=== PATIENT | female | born 1995 | race Caucasian/White ===

== ENCOUNTER 2019-04-14 21:49 | Emergency (ER) | payer OTHER ==
[2019-04-14 22:07] VITALS: BP 127/73
--- NOTE | 2019-04-14 22:10 | NUR ---
PATIENT LEFT WITHOUT BEING SEEN BY DR. EVERETT. CALLED X3. NO FURTHER CARE PROVIDED FOR PATIENT.
== END 2019-04-14 22:10 | disposition left against medical advice (07) ==
LOC: MED 21:49
DX: O26.893 Other specified pregnancy related conditions, third trimester (principal); J11.1 Influenza due to unidentified influenza virus with other respiratory manifestations; R51 Headache; R05 Cough; M79.10 Myalgia, unspecified site; R53.83 Other fatigue; Z53.21 Procedure and treatment not carried out due to patient leaving prior to being seen by health care provider; Z3A.31 31 weeks gestation of pregnancy